=== PATIENT | male | born 1940 | race Two or more races ===

== ENCOUNTER 2019-05-29 08:04 | Inpatient (IN) | payer SELFPAY ==
[~2019-05-29] VITALS: Ht 162.6 cm; Wt 67.3 kg
[2019-05-29] MEDS ORDERED: SODIUM CHLORIDE 0.9% 1,000 ML IV ONE (08:29)
[2019-05-29] MEDS ORDERED: ASPirin 81 mg TAB PO ONE (08:30)
[2019-05-29 08:49] LABS: Basophils # (auto) 0 uL; Basophils % (auto) 0.3 % (0.0-2.0); Hemoglobin 11.3 g/dL (13.5-17.5); Lymphocytes # (auto) 2.4 uL
[2019-05-29 08:51] LABS: Eosinophils # (auto) 0.2 uL; Eosinophils % (auto) 1.5 % (0.0-7.0); Hematocrit 36.2 % (41.0-53.0); Lymphocytes % (auto) 20.8 % (10.0-50.0); Mean Corpuscular Hemoglobin 21.8 pg (28.0-32.0); Mean Corpuscular Hgb Conc. 31.2 g/dL (32.0-36.0); Mean Corpuscular Volume 69.9 fL (80.0-100.0); Monocytes % (auto) 8.7 % (0.0-12.0); Neutrophils # (auto) 7.8 uL; Neutrophils % (auto) 68.7 % (37.0-80.0); Nucleated Red Blood Cells % 0.1 %; Platelet Count (auto) 260 10^3/uL (140-450); Red Blood Cells 5.18 10^6/uL (4.5-5.90); Red Cell Distribution Width 19.1 % (11.8-14.3); White Blood Cell 11.4 10^3/uL (4.4-10.8)
[2019-05-29] MEDS ORDERED: ALBUTEROL SULF 2.5 MG/0.5ML(0.5%) NEB SOLN NEB PRN (09:00)
[2019-05-29] MEDS ORDERED: IPRATROPIUM BROM 0.5 MG/2.5ML INH SOL NEB PRN (09:00)
[2019-05-29] MEDS ORDERED: NITROGLYCERIN 0.4 MG SL TAB SL PRN (09:00)
[2019-05-29] MEDS ORDERED: MORPHINE SULF INJ 2 MG/ML SYRINGE 1ML IV PRN (09:00)
[2019-05-29] MEDS ORDERED: hydrALAZINE HCL 20 MG/ML VL IV PRN (09:00)
[2019-05-29 09:06] LABS: Alanine Aminotransferase 19 U/L (16-61); Albumin 3.4 g/dL (3.4-5.0); Anion Gap 8 (5-15); Blood Urea Nitrogen 17 mg/dL (7-18); Calcium 8.9 mg/dL (8.5-10.1); Carbon Dioxide 23 mmol/L (21-32); Chloride 100 mmol/L (98-107); Glucose 159 mg/dL (74-106); Potassium 3.9 mmol/L (3.5-5.1); Sodium 131 mmol/L (136-145)
[2019-05-29 09:09] LABS: INR 1.07 (0.9-1.15); Partial Thromboplastin Time 30.4 sec (23.64-32.05)
[2019-05-29 09:12] LABS: Alkaline Phosphatase 75 U/L (45-117); Aspartate Aminotransferase 13 U/L (15-37); BUN/Creatinine Ratio 11.8; Bilirubin, Total 0.4 mg/dL (0.2-1.0); GFR African American 61 mL/min; GFR Non-African American 51 mL/min; Total Protein 8.9 g/dL (6.4-8.2)
[2019-05-29] MEDS ORDERED: DEXTROSE (50%) 50ML SYRG IV PRN (09:15)
[2019-05-29] MEDS ORDERED: NITROGLYCERIN 0.4MG/HR TOPICAL PATCH TD ONE (09:15)
[2019-05-29] MEDS: SODIUM CHLORIDE 0.9% 1,000 ML IV SCH ×2 (09:55→22:20)
[2019-05-29] MEDS: CLOPIDOGREL BISULFATE 75 MG TAB PO SCH (10:00)
[2019-05-29] MEDS ORDERED: FAMOTIDINE 20 MG TAB PO SCH (10:00)
[2019-05-29] MEDS: METOPROLOL TARTRATE 25 MG TAB PO SCH ×2 (10:10→23:07)
[2019-05-29 10:48] LABS: Urine Bacteria NONE SEEN /hpf (None Seen); Urine Blood Negative /uL (Negative); Urine Specific Gravity 1.012 (1.001-1.035); Urine WBC 2 /hpf (0 - 3)
[2019-05-29] MEDS ORDERED: TELM1TAB PO (11:07)
[2019-05-29] MEDS ORDERED: TAMS0.4C36 PO (11:07)
[2019-05-29] MEDS ORDERED: AML5T GT (11:07)
[2019-05-29] MEDS ORDERED: PRAV20TA3 PO (11:07)
[2019-05-29] MEDS ORDERED: CLOP75TA28 PO (11:07)
[2019-05-29] MEDS ORDERED: ATEN50TA PO (11:07)
[2019-05-29] MEDS ORDERED: METF-370 PO (11:07)
[2019-05-29] MEDS ORDERED: RANI150C11 PO (11:07)
[2019-05-29] MEDS: InsuLIN REG 1unit/0.01ml Soln (100units/ml) SC SCH ×2 (12:00→18:00)
[2019-05-29] MEDS: ACCU-CHEK COMFORT CURVE STRIP VI SCH ×2 (12:00→17:33)
[2019-05-29 13:00] VITALS: BP 105/73
[2019-05-29] MEDS ORDERED: IODIXANOL 320MG/ML 100ML BTL IV ONE (14:19)
[2019-05-29] MEDS ORDERED: LIDOCAINE 2%HCL (LOCAL ANESTH.) INJ 20ML MDV ONE (14:19)
[2019-05-29] MEDS ORDERED: VERAPAMIL 2.5MG/ML INJ 2ML VIAL IV ONE (14:28)
[2019-05-29] MEDS ORDERED: HEPARIN SODIUM (PORCINE) 5000 UNITS/ML 1ML VIAL ONE (14:28)
[2019-05-29] MEDS ORDERED: ANGIOMAX 250 MG VIAL IV ONE (14:34)
[2019-05-29] MEDS ORDERED: fentaNYL CITRATE 100 MCG/2 ML VL ONE (14:34)
[2019-05-29] MEDS ORDERED: SODIUM CHL 0.9% 50 ML ONE (14:35)
[2019-05-29] MEDS ORDERED: MIDAZOLAM HCL 1MG/1ML-2 ML VIAL ONE (14:35)
[2019-05-29] MEDS ORDERED: CLOPIDOGREL BISULFATE 75 MG TAB ONE (15:22)
[2019-05-29] MEDS ORDERED: ASPirin 81 mg TAB ONE (15:23)
[2019-05-29 17:35] VITALS: BP 105/73
[2019-05-29 21:51] VITALS: BP 128/78
[2019-05-29] MEDS ORDERED: ATORVASTATIN 20 MG TAB PO SCH (22:00)
[2019-05-30] MEDS: ACCU-CHEK COMFORT CURVE STRIP VI SCH ×3 (00:14→12:32)
[2019-05-30] MEDS: InsuLIN REG 1unit/0.01ml Soln (100units/ml) SC SCH ×3 (00:14→12:00)
[2019-05-30 04:58] VITALS: BP 111/64
[2019-05-30 08:00] VITALS: BP 121/76
[2019-05-30 09:00] VITALS: BP 121/76
[2019-05-30] MEDS: CLOPIDOGREL BISULFATE 75 MG TAB PO SCH (09:27)
[2019-05-30] MEDS: METOPROLOL TARTRATE 25 MG TAB PO SCH (09:27)
[2019-05-30] MEDS ORDERED: FAMOTIDINE 20 MG TAB PO SCH (10:00)
[2019-05-30] MEDS ORDERED: ASPirin-EC 81 mg tab PO SCH (10:00)
[2019-05-30 10:18] LABS: Cholesterol 129 mg/dL (< 200); HDL Cholesterol 29 mg/dL (40-59); LDL Cholesterol 88 mg/dL (< 100); Triglycerides 118 mg/dL (< 150)
[2019-05-30] MEDS: SODIUM CHLORIDE 0.9% 1,000 ML IV SCH (11:40)
[2019-05-30 13:00] VITALS: BP 114/71
[2019-05-30 15:19] VITALS: BP 121/76
== END 2019-05-30 16:50 | disposition home or self-care (01) | DRG 175 ==
LOC: ER 08:04 → TELE 08:05 → TELE-EAST 10:49 → TELE-WESTW 16:54
PROVIDERS: ADMIT Nurse Practitioner Acute Care; ATTEND Internal Medicine
PROC: 027034Z Dilation of Coronary Artery, One Artery with Drug-eluting Intraluminal Device, Percutaneous Approach (ICD-10-PCS; principal; 2019-05-29)
PROC: 4A023N7 Measurement of Cardiac Sampling and Pressure, Left Heart, Percutaneous Approach (ICD-10-PCS; 2019-05-29)
PROC: B211YZZ Fluoroscopy of Multiple Coronary Arteries using Other Contrast (ICD-10-PCS; 2019-05-29)
PROC: B215YZZ Fluoroscopy of Left Heart using Other Contrast (ICD-10-PCS; 2019-05-29)
DX: I25.10 Atherosclerotic heart disease of native coronary artery without angina pectoris (principal); E11.21 Type 2 diabetes mellitus with diabetic nephropathy; J84.10 Pulmonary fibrosis, unspecified; E44.1 Mild protein-calorie malnutrition; I10 Essential (primary) hypertension; E11.9 Type 2 diabetes mellitus without complications; J44.9 Chronic obstructive pulmonary disease, unspecified; N40.0 Benign prostatic hyperplasia without lower urinary tract symptoms; E78.5 Hyperlipidemia, unspecified; K80.20 Calculus of gallbladder without cholecystitis without obstruction; Z79.84 Long term (current) use of oral hypoglycemic drugs; Z87.891 Personal history of nicotine dependence; Z68.25 Body mass index [BMI] 25.0-25.9, adult
CPT/HCPCS: 36415; 71046; 71250; 76705; 76775; 80053; 80061; 81001; 82565; 82962; 83036; 83735; 83880; 84443; 84484; 85025; 85379; 85610; 85730; 92928; 93005; 93306; 93458; 96361; 96374; 99152; 99153; C1874; C1887; G0378; J1815; J2250; Q9967

== ENCOUNTER 2021-06-08 09:38 | Inpatient (IN) | payer MEDICAID ==
[~2021-06-08] VITALS: Ht 162.6 cm; Wt 69.2 kg
[~2021-06-08 09:38] MED LIST: AML5T GT; ATEN50TA PO; CLOP75TA28 PO; METF-370 PO; PRAV20TA3 PO; RANI150C11 PO; TAMS0.4C36 PO; TELM1TAB35 PO
[2021-06-08 11:11] LABS: Basophils # (auto) 0 10 ^3/uL (0-0.2); Eosinophils # (auto) 0.1 10 ^3/uL (0-0.8); Hemoglobin 9.4 g/dL (13.5-17.5); Lymphocytes # (auto) 1.5 10 ^3/uL (0.4-5.4)
[2021-06-08 11:16] LABS: Basophils % (auto) 0.5 % (0.0-2.0); Eosinophils % (auto) 1.2 % (0.0-7.0); Lymphocytes % (auto) 13.9 % (10.0-50.0); Mean Corpuscular Hemoglobin 26.3 pg (28.0-32.0); Mean Corpuscular Hgb Conc. 32.4 g/dL (32.0-36.0); Mean Corpuscular Volume 81.1 fL (80.0-100.0); Monocytes # (auto) 0.6 10 ^3/uL (0-1.3); Monocytes % (auto) 5.6 % (0.0-12.0); Neutrophils # (auto) 8.4 10 ^3/uL (1.6-8.6); Neutrophils % (auto) 78.8 % (37.0-80.0); Nucleated Red Blood Cells % 0.1 %; Red Blood Cells 3.58 10^6/uL (4.5-5.90); White Blood Cell 10.6 10^3/uL (4.4-10.8)
[2021-06-08 11:21] LABS: Red Cell Distribution Width 27.3 % (11.8-14.3)
[2021-06-08 11:30] LABS: INR 1.08 (0.9-1.15); Partial Thromboplastin Time 29.9 sec (23.6-33.0)
[2021-06-08 11:33] LABS: Potassium 4.7 mmol/L (3.5-5.1)
[2021-06-08] MEDS ORDERED: FUROSEMIDE 20 MG/2 ML VIAL IV ONE ×2 (12:00→18:15)
[2021-06-08 12:02] LABS: Albumin 3.1 g/dL (3.4-5.0); BUN/Creatinine Ratio 12.8; Bilirubin, Total 0.8 mg/dL (0.2-1.0); Calcium 8.2 mg/dL (8.5-10.1); Magnesium 2.5 mg/dL (1.6-2.6); Total Protein 8.6 g/dL (6.4-8.2)
[2021-06-08] MEDS ORDERED: ONDANSETRON HCL 4 MG/2 ML VIAL IV PRN (14:00)
[2021-06-08] MEDS ORDERED: MORPHINE SULFATE INJECTION 2 MG/ML SYRG IV PRN (14:00)
[2021-06-08] MEDS ORDERED: ACETAMINOPHEN 325 MG TAB PO PRN (14:00)
[2021-06-08] MEDS ORDERED: HYDROcodone-ACET 5/325MG TAB PO PRN (14:00)
[2021-06-08] MEDS ORDERED: TEMAZEPAM 15 MG CAP PO PRN (14:00)
[2021-06-08] MEDS ORDERED: ALUM & MAG HYDROX-SIMETH LIQ(MAALOX) 30 ML PO PRN (14:00)
[2021-06-08] MEDS: SODIUM CHLOR 0.9% PF (SALINE LOCK) 10ML VIAL/SYR IV SCH ×2 (14:00→21:21)
[2021-06-08] MEDS ORDERED: MORPHINE SULFATE 4 MG/ML SYR/VIAL IV PRN (14:00)
[2021-06-08] MEDS ORDERED: NITROGLYCERIN 0.4 MG SL TAB SL PRN (14:00)
[2021-06-08 14:13] LABS: Urine Bacteria NONE SEEN /hpf (None Seen); Urine Blood 1+ /uL (Negative); Urine Specific Gravity 1.005 (1.001-1.035); Urine WBC <1 /hpf (0 - 3)
[2021-06-08] MEDS ORDERED: DEXTROSE (50%) 50ML SYRG IV PRN (14:15)
[2021-06-08 15:29] VITALS: BP 149/74
[2021-06-08 16:21] LABS: Cholesterol 126 mg/dL (< 200); Triglycerides 127 mg/dL (< 150)
[2021-06-08 16:24] LABS: HDL Cholesterol 28 mg/dL (40-59); LDL Cholesterol 79 mg/dL (< 100)
[2021-06-08] MEDS: ACCU-CHEK COMFORT CURVE STRIP VI SCH ×2 (16:29→21:21)
[2021-06-08 17:00] VITALS: BP 150/71
[2021-06-08] MEDS ORDERED: InsuLIN REG 1unit/0.01ml Soln (100units/ml) SC SCH ×2 (17:00→22:00)
[2021-06-08 17:42] LABS: Protein, Urine 6.8 mg/dL (0.0-11.9)
[2021-06-08] MEDS ORDERED: guaiFENesin-CODEINE Liq 5 ML UD PO PRN (18:15)
[2021-06-08] MEDS ORDERED: guaiFENesin 200 MG/10 ML UD GT PRN (18:15)
[2021-06-08 18:28] LABS: Creatinine, Urine 5.21 mg/dL (30.0-125.0)
[2021-06-08] MEDS: IPRATROPIUM BROM 0.5 MG/2.5ML INH SOL NEB SCH (19:20)
[2021-06-08] MEDS: ALBUTEROL SULF 2.5 MG/0.5ML(0.5%) NEB SOLN NEB SCH (19:20)
[2021-06-08] MEDS: ATORVASTATIN 20 MG TAB PO SCH (21:15)
[2021-06-08] MEDS: METOPROLOL TARTRATE 25 MG TAB PO SCH (21:16)
[2021-06-08 22:02] VITALS: BP 101/64
[2021-06-09] MEDS: IPRATROPIUM BROM 0.5 MG/2.5ML INH SOL NEB SCH ×4 (00:33→19:04)
[2021-06-09] MEDS: ALBUTEROL SULF 2.5 MG/0.5ML(0.5%) NEB SOLN NEB SCH ×4 (00:33→19:04)
[2021-06-09 05:10] VITALS: BP 128/77
[2021-06-09 07:07] LABS: INR 1.09 (0.9-1.15); Partial Thromboplastin Time 29.3 sec (23.6-33.0)
[2021-06-09 07:12] LABS: Calcium 9.1 mg/dL (8.5-10.1); Potassium 4.3 mmol/L (3.5-5.1)
[2021-06-09 07:15] LABS: BUN/Creatinine Ratio 13.1
[2021-06-09 08:39] VITALS: BP 127/69
[2021-06-09] MEDS ORDERED: ACCU-CHEK COMFORT CURVE STRIP VI SCH (08:44)
[2021-06-09] MEDS ORDERED: InsuLIN REG 1unit/0.01ml Soln (100units/ml) SC SCH ×2 (08:44→22:00)
[2021-06-09] MEDS ORDERED: DEXTROSE (50%) 50ML SYRG IV PRN ×2 (08:45→13:00)
[2021-06-09] MEDS ORDERED: SODIUM CHLORIDE 0.9% 1,000 ML IV ONE (08:45)
[2021-06-09] MEDS: METOPROLOL TARTRATE 25 MG TAB PO SCH ×2 (08:49→21:52)
[2021-06-09] MEDS: CLOPIDOGREL BISULFATE 75 MG TAB PO SCH (08:49)
[2021-06-09] MEDS: SODIUM CHLOR 0.9% PF (SALINE LOCK) 10ML VIAL/SYR IV SCH ×3 (08:53→21:52)
[2021-06-09] MEDS: ENOXAPARIN SOD 40 MG/0.4 ML SYRINGE SC SCH (09:01)
[2021-06-09] MEDS ORDERED: AMLO-489 PO (10:17)
[2021-06-09] MEDS ORDERED: IODIXANOL 320MG/ML 100ML BTL IV ONE (10:30)
[2021-06-09] MEDS ORDERED: LIDOCAINE 2%HCL (LOCAL ANESTH.) INJ 10ml MDV ONE (10:33)
[2021-06-09 10:37] LABS: Basophils # (auto) 0.1 10 ^3/uL (0-0.2); Basophils % (auto) 0.4 % (0.0-2.0); Eosinophils # (auto) 0.1 10 ^3/uL (0-0.8); Eosinophils % (auto) 0.4 % (0.0-7.0); Hemoglobin 10.4 g/dL (13.5-17.5); Lymphocytes # (auto) 0.9 10 ^3/uL (0.4-5.4); Lymphocytes % (auto) 6.5 % (10.0-50.0); Mean Corpuscular Hemoglobin 26.5 pg (28.0-32.0); Mean Corpuscular Hgb Conc. 32.6 g/dL (32.0-36.0); Mean Corpuscular Volume 81.1 fL (80.0-100.0); Monocytes # (auto) 0.8 10 ^3/uL (0-1.3); Monocytes % (auto) 5.3 % (0.0-12.0); Neutrophils # (auto) 12.4 10 ^3/uL (1.6-8.6); Neutrophils % (auto) 87.4 % (37.0-80.0); Nucleated Red Blood Cells % 0.6 %; Red Blood Cells 3.94 10^6/uL (4.5-5.90); Red Cell Distribution Width 26.9 % (11.8-14.3); White Blood Cell 14.2 10^3/uL (4.4-10.8)
[2021-06-09] MEDS ORDERED: predniSONE 20 MG TAB PO ONE (10:45)
[2021-06-09 11:23] LABS: % Iron Saturation 9.8 % (20-55)
[2021-06-09] MEDS ORDERED: CHOLECALCIFEROL (VITD3) 2,000 UNIT CAP/TAB PO ONE (12:30)
[2021-06-09] MEDS ORDERED: FERROUS SULFATE 325mg EC TAB PO ONE (12:30)
[2021-06-09 13:00] VITALS: BP 127/66
[2021-06-09] MEDS ORDERED: SODIUM FERR GLUC 62.5MG/5ML 125 MG in SODIUM CHL 0.9% 100 ML IV ONE (15:45)
[2021-06-09] MEDS ORDERED: ERGOCALCIFEROL 50,000 UNIT(1.25MG) CAP PO SCH (15:45)
[2021-06-09 16:30] VITALS: BP 127/74
[2021-06-09] MEDS: ACCU-CHEK COMFORT CURVE STRIP VI SCH ×2 (17:35→21:52)
[2021-06-09] MEDS: FERROUS SULFATE 325mg EC TAB PO SCH (17:36)
[2021-06-09] MEDS: InsuLIN REG 1unit/0.01ml Soln (100units/ml) SC SCH (17:37)
[2021-06-09] MEDS ORDERED: LIDOCAINE HCL 5 % TOP OINT 35 GM TOP PRN (17:45)
[2021-06-09 17:49] LABS: Folate (Folic Acid) > 24.00 ng/mL (5.38-24)
[2021-06-09] MEDS ORDERED: PRAV20TA3 PO (18:31)
[2021-06-09] MEDS ORDERED: FLUT0.05 NAS (18:31)
[2021-06-09] MEDS ORDERED: ASPI325T4 PO (18:31)
[2021-06-09] MEDS ORDERED: TELM80TA PO (18:31)
[2021-06-09] MEDS ORDERED: FERR-20 PO (18:31)
[2021-06-09] MEDS ORDERED: PANT40TA2 PO (18:31)
[2021-06-09] MEDS: ATORVASTATIN 20 MG TAB PO SCH (21:52)
[2021-06-09 22:00] VITALS: BP 144/65
[2021-06-10] MEDS: IPRATROPIUM BROM 0.5 MG/2.5ML INH SOL NEB SCH ×2 (00:29→08:01)
[2021-06-10] MEDS: ALBUTEROL SULF 2.5 MG/0.5ML(0.5%) NEB SOLN NEB SCH ×2 (00:29→08:01)
[2021-06-10 05:01] VITALS: BP 138/76
[2021-06-10] MEDS: InsuLIN REG 1unit/0.01ml Soln (100units/ml) SC SCH ×3 (07:00→17:05)
[2021-06-10] MEDS: SODIUM CHLOR 0.9% PF (SALINE LOCK) 10ML VIAL/SYR IV SCH ×2 (07:01→14:11)
[2021-06-10] MEDS: ACCU-CHEK COMFORT CURVE STRIP VI SCH ×3 (07:01→17:02)
[2021-06-10 07:25] LABS: Calcium 8.8 mg/dL (8.5-10.1); Potassium 4.1 mmol/L (3.5-5.1)
[2021-06-10 07:27] LABS: BUN/Creatinine Ratio 19.4
[2021-06-10 08:00] VITALS: BP 137/75
[2021-06-10] MEDS ORDERED: SODIUM CHLORIDE 0.9% 1,000 ML IV ONE (08:30)
[2021-06-10 08:44] VITALS: BP 137/75
[2021-06-10] MEDS: FERROUS SULFATE 325mg EC TAB PO SCH ×2 (09:12→17:10)
[2021-06-10] MEDS: CLOPIDOGREL BISULFATE 75 MG TAB PO SCH (09:13)
[2021-06-10] MEDS: METOPROLOL TARTRATE 25 MG TAB PO SCH (09:13)
[2021-06-10] MEDS: ENOXAPARIN SOD 40 MG/0.4 ML SYRINGE SC SCH (09:16)
[2021-06-10] MEDS ORDERED: predniSONE 20 MG TAB PO SCH (10:00)
[2021-06-10] MEDS ORDERED: CHOLECALCIFEROL (VITD3) 2,000 UNIT CAP/TAB PO SCH (10:00)
[2021-06-10] MEDS ORDERED: PRED20TA2 PO (10:24)
[2021-06-10] MEDS ORDERED: FLUT1AER3 IN (10:24)
[2021-06-10 12:38] VITALS: BP 132/62
[2021-06-10] MEDS ORDERED: SODIUM FERR GLUC 62.5MG/5ML 125 MG in SODIUM CHL 0.9% 100 ML IV ONE (13:30)
[2021-06-10] MEDS ORDERED: FUROSEMIDE 40 MG/4 ML VIAL IV ONE (14:15)
[2021-06-10 15:17] VITALS: BP 132/62
[2021-06-10] MEDS ORDERED: BENZ200C64 PO (15:38)
[2021-06-10 16:59] VITALS: BP 124/72
== END 2021-06-10 18:30 | disposition home health service (06) | DRG 192 ==
LOC: ER 09:38 → TELE 13:58 → TELE-WESTW 15:38
PROVIDERS: ADMIT Internal Medicine; ATTEND Internal Medicine
PROC: 4A023N7 Measurement of Cardiac Sampling and Pressure, Left Heart, Percutaneous Approach (ICD-10-PCS; principal; 2021-06-09)
PROC: B211YZZ Fluoroscopy of Multiple Coronary Arteries using Other Contrast (ICD-10-PCS; 2021-06-09)
PROC: B215YZZ Fluoroscopy of Left Heart using Other Contrast (ICD-10-PCS; 2021-06-09)
PROC: 4A033BC Measurement of Arterial Pressure, Coronary, Percutaneous Approach (ICD-10-PCS; 2021-06-09)
DX: I13.0 Hypertensive heart and chronic kidney disease with heart failure and stage 1 through stage 4 chronic kidney disease, or unspecified chronic kidney disease (principal); N17.9 Acute kidney failure, unspecified; E44.0 Moderate protein-calorie malnutrition; I24.9 Acute ischemic heart disease, unspecified; E11.22 Type 2 diabetes mellitus with diabetic chronic kidney disease; E87.1 Hypo-osmolality and hyponatremia; J44.1 Chronic obstructive pulmonary disease with (acute) exacerbation; D50.9 Iron deficiency anemia, unspecified; Z20.822 Contact with and (suspected) exposure to COVID-19; J84.10 Pulmonary fibrosis, unspecified; J84.9 Interstitial pulmonary disease, unspecified; I50.31 Acute diastolic (congestive) heart failure; I25.10 Atherosclerotic heart disease of native coronary artery without angina pectoris; E78.5 Hyperlipidemia, unspecified; N18.31 Chronic kidney disease, stage 3a; Z99.81 Dependence on supplemental oxygen; Z68.26 Body mass index [BMI] 26.0-26.9, adult; Z79.84 Long term (current) use of oral hypoglycemic drugs; Z82.49 Family history of ischemic heart disease and other diseases of the circulatory system; Z83.3 Family history of diabetes mellitus; Z87.891 Personal history of nicotine dependence; Z95.5 Presence of coronary angioplasty implant and graft
CPT/HCPCS: 36415; 36600; 71045; 71250; 80048; 80053; 80061; 81001; 82306; 82533; 82570; 82607; 82728; 82746; 82805; 82962; 83036; 83540; 83550; 83735; 83880; 83930; 83935; 84156; 84300; 84443; 84484; 84550; 85025; 85379; 85610; 85730; 87426; 93005; 93306; 93458; 93571; 93925; 93970; 94640; 96372; 96374; 99152; G0378; J1815; J2001; Q9967

== ENCOUNTER → 2021-06-21 | Outpatient (CLI) | payer MEDICAID ==
[~2021-06-21] MED LIST changes: -AML5T GT; +AMLO-489 PO; +ASPI325T4 PO; +BENZ200C64 PO; +FERR-20 PO; +FLUT0.05 NAS; +FLUT1AER3 IN; +PANT40TA2 PO; +PRED20TA2 PO; -TELM1TAB35 PO; +TELM80TA PO
== END | disposition home or self-care (01) ==
LOC: RT 10:03
PROVIDERS: ATTEND Internal Medicine Pulmonary Disease
DX: R06.02 Shortness of breath (principal)
CPT/HCPCS: 94060; 94727; 94729

== ENCOUNTER → 2021-06-21 | Outpatient (CLI) | payer MEDICAID | END | disposition home or self-care (01) | LOC: LAB 10:17 | PROVIDERS: ATTEND Internal Medicine Pulmonary Disease | DX: Z01.812 Encounter for preprocedural laboratory examination (principal); Z20.822 Contact with and (suspected) exposure to COVID-19 | CPT/HCPCS: 36415 ==